=== PATIENT | male | born 2000 | race Caucasian/White ===

== ENCOUNTER 2022-05-17 06:53 | Emergency (ER) | payer OTHER ==
[2022-05-17] MEDS ORDERED: IBUPROFEN 200 MG TAB PO ONE (07:44)
[2022-05-17 08:16] LABS: SARS-COV-2 RT PCR NEGATIVE (NEGATIVE)
--- NOTE | 2022-05-17 08:27 | EDPHYS ---
Physician Documentation [facility] Name: Rachid Banuelos Age: 21 yrs Sex: Male : 2000 Arrival Date: 05/17/2022 Time: 06:57 Bed 7 Private MD: ED Physician Burak Uriarte HPI: 05/17 07:37 This 21 yrs old Male presents to ER via Ambulatory with complaints of Sore Throat, ms3 Fatigue. 07:37 21-year-old male with no past medical history presents for flulike symptoms. Patient ms3 states he was exposed to the flu on Friday. Patient endorses fatigue, throat pain. Patient states his symptoms began this morning. Patient states his discomfort is a 4/10 and described as aching. Patient denies alleviating or inciting factors.. Historical: - Allergies: 07:17 No Known Allergies; aa5 - Home Meds: 07:17 None [Active]; aa5 - PMHx: 07:17 None; aa5 - PSHx: 07:17 None; aa5 - Immunization history:: Adult Immunizations unknown. - Social history:: Smoking status: Patient denies any tobacco usage or history of. ROS: 07:37 Neck: Negative for injury, pain, and swelling, Cardiovascular: Negative for chest pain, ms3 and palpitations. Respiratory: Negative for shortness of breath, cough, wheezing, and pleuritic chest pain, Abdomen/GI: Negative for abdominal pain, nausea, vomiting, diarrhea, and constipation, MS/Extremity: Negative for injury and deformity. 07:37 Constitutional: Positive for body aches. 07:37 ENT: Positive for sore throat. 07:37 All other systems are negative. Exam: 07:37 Constitutional: This is a well developed, well nourished patient who is awake, alert, ms3 and in no acute distress. Head/Face: Normocephalic, atraumatic. Neck: Trachea midline, no cervical lymphadenopathy. Supple, full range of motion without nuchal rigidity, or vertebral point tenderness. No Meningismus. Chest/axilla: Normal chest wall appearance and motion. Nontender with no deformity. Cardiovascular: Regular rate and rhythm with a normal S1 and S2. No gallops, murmurs, or rubs. Normal PMI, no JVD. No pulse deficits. Respiratory: Lungs have equal breath sounds bilaterally, clear to auscultation and percussion. No rales, rhonchi or wheezes noted. No increased work of breathing, no retractions or nasal flaring. Abdomen/GI: Soft, non-tender, with normal bowel sounds. No distension or tympany. No guarding or rebound. No evidence of tenderness throughout. Skin: Warm, dry with normal turgor. Normal color with no rashes, no lesions, and no evidence of cellulitis. MS/ Extremity: Pulses equal, no cyanosis. Neurovascular intact. Full, normal range of motion. Psych: Awake, alert, with orientation to person, place and time. Behavior, mood, and affect are within normal limits. Vital Signs: 07:15 BP 140 / 96; Pulse 64; Resp 16 S; Temp 97.5(O); Pulse Ox 99% on R/A; Weight 81.65 kg aa5 (R); Height 5 ft. 10 in. (177.80 cm) (R); 08:00 BP 122 / 85; Pulse 67; Resp 17 S; Temp 97.8(TE); Pulse Ox 98% on R/A; aa5 07:15 Body Mass Index 25.83 (81.65 kg, 177.80 cm) aa5 MDM: 07:10 Patient medically screened. ms3 08:27 Differential diagnosis: bronchitis, upper respiratory infection, Flu vs COVID. Data ms3 reviewed: vital signs, nurses notes, lab test result(s), and as a result, I will discharge patient. I considered the following discharge prescriptions or medication management in the emergency department I discussed and recommended Over The Counter medications, Medications were administered in the Emergency Department. See MAR. Counseling: I had a detailed discussion with the patient and/or guardian regarding: the historical points, exam findings, and any diagnostic results supporting the discharge/admit diagnosis, lab results, the need for outpatient follow up, to return to the emergency department if symptoms worsen or persist or if there are any questions or concerns that arise at home. ED course: Discussed negative flu, COVID with patient. Patient follow-up with Dr. Hall in 2 to 3 days. Patient understands and agrees with plan. All questions were answered. Return precautions discussed include worsening symptoms, or any other concerns. On reevaluation patient is alert and orient x4, no apparent distress, nontoxic, ambulatory in emergency department, speaking full sentences. 05/17 07:20 Order name: COVID-19/FLU A+B ms3 05/17 08:16 Order name: COVID-19/FLU A+B; Complete Time: 08:24 EDMS Administered Medications: 07:42 Drug: Ibuprofen 600 mg Route: PO; aa5 08:38 Follow up: Response: No adverse reaction aa5 Disposition Summary: 05/17/22 08:26 Discharge Ordered Location: Home ms3 Condition: Stable ms3 Diagnosis - Acute upper respiratory infection, unspecified ms3 Followup: ms3 - With: Quang Hall MD - When: 2 - 3 days - Reason: Recheck today's complaints Discharge Instructions: - Discharge Summary Sheet ms3 - Upper Respiratory Infection, Adult ms3 Forms: - Medication Reconciliation Form ms3 - Thank You Letter ms3 - Antibiotic Education ms3 - Prescription Opioid Use ms3 Signatures: Dispatcher [employer] EDNguyen Glover RN RN aa5 Burak Uriarte DO DO ms3
--- NOTE | 2022-05-17 08:27 | ER ---
Nurse's Notes [facility] Name: Rachdi Banuelos Age: 21 yrs Sex: Male : 2000 Arrival Date: 05/17/2022 Time: 06:57 Bed 7 Private MD: Diagnosis: Acute upper respiratory infection, unspecified Presentation: 05/17 07:15 Chief complaint: Patient states: "I was exposed to the flu and didn't want to go to aa5 work knowing that I had been exposed". Pt c/o nausea, fatigue, "scratchy throat" that began today. Denies vomiting. Coronavirus screen: fatigue, nausea, sore throat. Ebola Screen: Patient denies travel to an Ebola-affected area in the 21 days before illness onset. Initial Sepsis Screen: Does the patient meet any 2 criteria? No. Patient's initial sepsis screen is negative. Does the patient have a suspected source of infection? No. Patient's initial sepsis screen is negative. Risk Assessment: Do you want to hurt yourself or someone else? Patient reports no desire to harm self or others. Onset of symptoms was May 17, 2022. 07:15 Acuity: RIYA 4 aa5 07:15 Method Of Arrival: Ambulatory aa5 Historical: - Allergies: 07:17 No Known Allergies; aa5 - Home Meds: 07:17 None [Active]; aa5 - PMHx: 07:17 None; aa5 - PSHx: 07:17 None; aa5 - Immunization history:: Adult Immunizations unknown. - Social history:: Smoking status: Patient denies any tobacco usage or history of. Screenin:15 [facility] ED Fall Risk Assessment (Adult) History of falling in the last 3 months, aa5 including since admission No falls in past 3 months (0 pts) Confusion or Disorientation No (0 pts) Intoxicated or Sedated No (0 pts) Impaired Gait No (0 pts) Mobility Assist Device Used No (0 pt) Altered Elimination No (0 pt) Score/Fall Risk Level 0 - 2 = Low Risk. Abuse screen: Denies threats or abuse. Nutritional screening: No deficits noted. Tuberculosis screening: No symptoms or risk factors identified. Assessment: 07:15 General: Appears comfortable, Behavior is calm, cooperative. Pain: Denies pain. Neuro: aa5 Level of Consciousness is awake, alert, obeys commands, Oriented to person, place, time, situation. Cardiovascular: Heart tones S1 S2 present Rhythm is regular. Respiratory: Airway is patent Respiratory effort is even, unlabored, Respiratory pattern is regular, symmetrical, Breath sounds are clear bilaterally. GI: Abdomen is round non-distended, Bowel sounds present X 4 quads. Abd is soft and non tender X 4 quads. Reports nausea, Patient currently denies vomiting. : No signs and/or symptoms were reported regarding the genitourinary system. EENT: Reports scratchy throat . Derm: Skin is pink, warm \\T\\ dry. Musculoskeletal: Range of motion: intact in all extremities. 08:00 Reassessment: Patient is alert, oriented x 3, equal unlabored respirations, skin aa5 warm/dry/pink. Awaiting results, pt aware. . 08:38 Reassessment: Patient is alert, oriented x 3, equal unlabored respirations, skin aa5 warm/dry/pink. Vital Signs: 07:15 BP 140 / 96; Pulse 64; Resp 16 S; Temp 97.5(O); Pulse Ox 99% on R/A; Weight 81.65 kg aa5 (R); Height 5 ft. 10 in. (177.80 cm) (R); 08:00 BP 122 / 85; Pulse 67; Resp 17 S; Temp 97.8(TE); Pulse Ox 98% on R/A; aa5 07:15 Body Mass Index 25.83 (81.65 kg, 177.80 cm) aa5 ED Course: 06:57 Patient arrived in ED. mr 07:10 Burak Uriarte DO is Attending Physician. ms3 07:15 Nguyen Diallo, RN is Primary Nurse. aa5 07:15 Arm band placed on. aa5 07:15 Patient has correct armband on for positive identification. Bed in low position. Call aa5 light in reach. Side rails up X 1. 07:16 Triage completed. aa5 08:25 Quang Hall MD is Referral Physician. ms3 08:38 No provider procedures requiring assistance completed. Patient did not have IV access aa5 during this emergency room visit. Administered Medications: 07:42 Drug: Ibuprofen 600 mg Route: PO; aa5 08:38 Follow up: Response: No adverse reaction aa5 Medication: 08:38 VIS not applicable for this client. aa5 Outcome: 08:26 Discharge ordered by . ms3 08:38 Discharged to home ambulatory. aa5 08:38 Condition: stable 08:38 Discharge instructions given to patient, Instructed on discharge instructions, follow up and referral plans. Demonstrated understanding of instructions, follow-up care. 08:39 Patient left the ED. aa5 Signatures: Lisa Medrano Audri RN RN aa5 Burak Uriarte DO DO ms3
[2022-05-17 08:59] VITALS: BP 122/85; TEMP 97.8; O2SAT 98
== END 2022-05-17 08:39 | disposition home or self-care (01) ==
LOC: ER 06:53
DX: J06.9 Acute upper respiratory infection, unspecified (principal); Z20.822 Contact with and (suspected) exposure to COVID-19
CPT/HCPCS: 0240U; 99283